=== PATIENT | female | born 1975 | race Two or more races ===

== ENCOUNTER 2024-07-12 09:25 | Emergency (ER) | payer OTHER, MEDICAID ==
[~2024-07-12] VITALS: Ht 152.4 cm; Wt 54.0 kg
[2024-07-12 10:10] VITALS: TEMP 98
--- NOTE | 2024-07-12 10:58 | DVH ---
CLINICAL INDICATION: fall, trauma, pain TECHNIQUE: XY R WRIST 3+ VIEW XRAY Comparison: None FINDINGS/IMPRESSION: : Osteopenia. Comminuted and displaced fracture of the distal radial metaphysis. Diffuse soft-tissue swelling around the wrist joint.
[2024-07-12] MEDS ORDERED: HYDROmorphone HCL 2 MG/ML VL/or syr IM ONE (11:30)
[2024-07-12] MEDS: HYDROcodone-ACET 10/325MG TAB PO ONE (11:58)
[2024-07-12] MEDS: BENZOCAINE (DENTAL) 20 % SPRAY 60ML MT ONE (12:03)
[2024-07-12] MEDS ORDERED: IBUP-1456 PO (12:45)
--- NOTE | 2024-07-12 12:45 | ED.PDOC ---
Musculoskeletal HPI Comments 49-year-old female with a history of CVA, right-sided hemiparesis, brain tumor presents for a fall that occurred yesterday. Pain is located to the right wrist and pain is nonradiating. Onset occurred after she tripped walking into her home. Pain is rated as moderate in his not taking medications for the symptoms listed above Denies hitting head denies LOC Denies persistent nausea Denies vomiting Denies taking any blood thinner medication Denies vision/hearing changes Denies focal loss of strength/sensation or changes in speech Chief Complaint: Upper Extremity Time Seen by MD: 09:37 Reviewed Notes: Nurses Notes, Medications, Allergies Home Meds Active Scripts Hydrocodone-Acetaminophen (Hydrocodone Bitartrate/AC 5-325 mg) 1 Tab Tab, 1 TAB PO Q8HPRN PRN for 5 Days, #15 TAB 0 Refills Prov:CHAZ SHERMAN BALING PRESS OPERATOR 07/12/24 Ibuprofen (Ibuprofen) 800 Mg Tab, 1 TAB PO TID for 30 Days, #90 TAB 0 Refills Prov:CHAZ SHERMAN BALING PRESS OPERATOR 07/12/24 Information Source: Patient Mode of Arrival: Ambulatory Family History Family History: Reviewed,noncontributory to illness Social History Smoker: Non-Smoker Alcohol: Denies ETOH Use Drugs: Denies Drug Use All Other Systems: Reviewed and Negative (Per HPI) Physical Exam General Appearance: No Apparent Distress, Normal HEENT: Normal ENT Inspection, Pharynx Normal, TMs Normal Neck: Full Range of Motion, Non-Tender, Normal, Normal Inspection Respiratory: Chest Non-Tender, Lungs Clear, No Accessory Muscle Use, No Respiratory Distress, Normal Breath Sounds Cardiovascular: No Edema, No JVD, No Murmur, No Gallop, Normal Peripheral Pulses, Regular Rate/Rhythm Breast Exam: Deferred Gastrointestinal: No Organomegaly, Non Tender, No Pulsatile Mass, Normal Bowel Sounds, Soft Genitalia: Deferred Pelvic: Deferred Rectal: Deferred Extremities: No calf tenderness, Normal capillary refill, Normal inspection, Normal range of motion, Non-tender, No pedal edema Musculoskeletal : Apperance: Normal Neurologic: Alert, [employer] II-XII nml as Tested, No Motor Deficits, Normal Affect, Normal Mood, No Sensory Deficits Cerebellar Function: Normal Reflexes: Normal Skin: Dry, Normal Color, Warm Lymphatic: No Adenopathy Was a procedure done? Was a procedure done?: No Differential Diagnosis EXT Differential Diagnosis: Fracture, Sprain, Dislocation X-Ray, Labs, Meds, VS Vital Signs Date Time Temp Pulse Resp B/P (MAP) Pulse Ox O2 Delivery O2 Flow Rate FiO2 07/12/24 13:00 76 20 111/67 (82) 100 07/12/24 10:10 86 18 98 Room Air 07/12/24 10:10 98.0 86 18 117/76 (90) 98 98.0 07/12/24 09:38 98.0 86 18 117/76 (90) 98 Current Medications Medications (Trade) Dose Ordered Sig/Hao Route Start Time Stop Time Status Last Admin Acetaminophen/ Hydrocodone Bitart ([place] 10/325MG Tab) 1 tab ONCE ONCE PO 07/12/24 11:45 07/12/24 11:46 DC 07/12/24 11:58 Benzocaine (Hurricaine [place]) 1 spr ONCE ONCE MT 07/12/24 11:45 07/12/24 11:46 DC 07/12/24 12:03 PATIENT: JANIA CORNELLACCT: [id number]: [id number] : 1975 LOC: ER ROOM / BED: / AGE / SEX: 49 / F ADM STATUS: REG ER SERVICE 1012 ORDERING PHYSICIAN: CHAZ SHERMAN NP PROCEDURE(s): RWRI - R WRIST 3+ VIEW XRAY REASON: fall ORDER NUMBER(s): [id number], ACCESSION NUMBER(s): [id number] CLINICAL INDICATION: fall, trauma, pain TECHNIQUE: XY R WRIST 3+ VIEW XRAY Comparison: None FINDINGS/IMPRESSION: : Osteopenia. Comminuted and displaced fracture of the distal radial metaphysis. Diffuse soft-tissue swelling around the wrist joint. ATED BY: ANUPAM LEWIS MD DICTATED DATE/TIME: 07/12/24 105 SIGNED BY: ANUPAM LEWIS MD SIGNED DATE/TIME: 07/12/24 105 CC: X-Ray, Labs, Meds, VS Comment On reevaluation, patient had symptomatic improvement. Patient is stable for discharge at this time. External notes reviewed. Test results and diagnostic imaging interpreted. All diagnostic findings, discharge care, education and instructions provided Follow-up with PCP in 2 to 3 days Patient verbalized understanding and agreed to treatment plan Vital signs stable, afebrile, no acute distress noted Patient ambulatory with strong steady gait Advised to return precautions for any new or worsening symptoms, return to ER immediately for re-evaluation Patient is aware that the purpose of this visit was for an acute medical emergency requiring emergent stabilization. Chronic conditions, including malig nancies have not been ruled out. Patient is instructed to follow up with PCP as directed and discharge instructions for continued care and workup. If unable to arrange follow-up, patient is to return to the emergency department for reassessment. Patient (parent or legal guardian if applicable) was given verbal and written discharge instructions and acknowledges understanding. Time of 1ST Reevaluation: 11:25 Reevaluation 1ST: Improved Time of 2ND Reevaluation: 12:44 Reevaluation 2ND: Improved Patient Education/Counseling: Diagnosis, Treatment Family Education/Counseling: Diagnosis, Treatment Departure 1 Departure Time of Disposition: 12:45 Impression: Primary Impression: Radial fracture Qualified Codes: S52.501A - Unspecified fracture of the lower end of right radius, initial encounter for closed fracture Disposition: 01 HOME / SELF CARE / HOMELESS Condition: Stable e-Prescriptions Hydrocodone-Acetaminophen (Hydrocodone Bitartrate/AC 5-325 mg) 1 Tab Tab 1 TAB PO Q8HPRN PRN for 5 Days, #15 TAB 0 Refills Prov: CHAZ SHERMAN NP 07/12/24 Ibuprofen (Ibuprofen) 800 Mg Tab 1 TAB PO TID for 30 Days, #90 TAB 0 Refills Prov: CHAZ SHERMAN NP 07/12/24 Discharged With: Self Critical Care Note Critical Care Time?: No Stability Stability form required: No Heart Score Heart Score: Heart Score Response (Comments) Value History N/A 0 EKG N/A 0 Age N/A 0 Risk Factors N/A 0 Troponin N/A 0 Total 0 CHAZ SHERMAN NP Jul 12, 2024 12:45
[2024-07-12 13:00] VITALS: BP 111/67; PULSE 76; RESP 20; O2SAT 100
[2024-07-12] MEDS ORDERED: HYDR-4902 PO (13:06)
== END 2024-07-12 13:07 | disposition home or self-care (01) ==
LOC: ER 09:25
DX: S52.591A Other fractures of lower end of right radius, initial encounter for closed fracture (principal); Z79.1 Long term (current) use of non-steroidal anti-inflammatories (NSAID); Z79.899 Other long term (current) drug therapy; W01.0XXA Fall on same level from slipping, tripping and stumbling without subsequent striking against object, initial encounter; Y93.01 Activity, walking, marching and hiking; Y92.89 Other specified places as the place of occurrence of the external cause; Y99.8 Other external cause status
CPT/HCPCS: 29105; 73110

== ENCOUNTER 2024-11-22 16:42 | Emergency (ER) | payer OTHER, MEDICAID ==
[~2024-11-22] VITALS: Ht 157.5 cm; Wt 50.0 kg
[~2024-11-22 16:42] MED LIST: HYDR-4902 PO; IBUP-1456 PO
--- NOTE | 2024-11-22 17:08 | ED.PDOC ---
Ton[place]. trauma (HPI) HPI Comments 49 y.o female presents to the ED via EMS for a chief complaint of right ankle pain. Patient reports accidently rolling ankle today around 0930 and since has not been able to bear any weight to right leg. Patient presents with positive deformity, describes as sharp and rating a 10/10 on the pain scale. Patient denies any falls, head injuries, dizziness or weakness. EMS placed patient in a box splinter. Chief Complaint: Lower Extremity Time Seen by MD: 16:57 Primary Care Provider: URIEL Zabala notes: Nurses Notes, Musical Engineer Notes, Medications, Allergies Allergies: Coded Allergies: NO KNOWN ALLERGIES (Unverified , 11/22/24) Information Source: Patient, Emergency Med Personnel Mode of Arrival: EMS Severity: Moderate Timing: Hours Duration: Since onset Prehospital treatment: 12 Lead EKG, Carton Maker Location: (R) Ankle Location of laceration: None Mechanism: Blunt trauma Past Medical History PAST MEDICAL HISTORY: Cancer, CVA Surgical History (Other): brain DESIGN DRAFTER CHIEF History: No Pertinent DESIGN DRAFTER CHIEF History Family History Family History: Reviewed,noncontributory to illness Social History Smoker: Non-Smoker Alcohol: Denies ETOH Use Drugs: Denies Drug Use Lives In: Home Constitutional: denies: chills, diaphoresis, fatigue, fever, malaise, sweats, weakness, others EENTM: denies: blurred vision, double vision, ear bleeding, ear discharge, ear drainage, ear pain, ear ringing, eye pain, eye redness, hearing loss, mouth pain, mouth swelling, nasal discharge, nose bleeding, nose congestion, nose pain, photophobia, tearing, throat pain, throat swelling, voice changes, others Respiratory: denies: cough, hemoptysis, orthopnea, SOB at rest, shortness of breath, SOB with excertion, stridor, wheezing, others Cardiovascular: denies: chest pain, dizzy spells, diaphoresis, Dyspnea on exertion, edema, irregular heart beat, left arm pain, lightheadedness, palpitations, PND, syncope, others Gastrointestinal: denies: abdomen distended, abdominal pain, blood streaked bowels, constipated, diarrhea, dysphagia, difficulty swallowing, hematemesis, melena, nausea, poor appetite, poor fluid intake, rectal bleeding, rectal pain, vomiting, others Genitourinary: denies: abnormal vagina bleeding, burning, dyspareunia, dysuria, flank pain, frequency, hematuria, incontinence, pain, , vagina discharge, urgency, others Neurological: denies: dizziness, fainting, headache, left sided numbness, left sided weakness, numbness, paresthesia, pre-existing deficit, right sided numbness, right sided weakness, seizure, speech problems, tingling, tremors, weakness, others Musculoskeletal: reports: others (right ankle pain ); denies: back pain, gout, joint pain, joint swelling, muscle pain, muscle stiffness, neck pain Integumetry: denies: bruises, change in color, change in hair/nails, dryness, laceration, lesions, lumps, rash, wounds, others Allergic/Immunocompromised: denies: Difficulty Healing, Frequent Infections, Hives, Itching, others Hematologic/Lymphatic: denies: anemia, blood clots, easy bleeding, easy bruising, swollen glands, others Endocrine: denies: excessive hunger, excessive sweating, excessive thirst, excessive urination, flushing, intolerance to cold, intolerance to heat, unexplained weight gain, unexplained weight loss, others Psychiatric: denies: anxiety, bipolar disorder, depression, hopeless, panic disorder, schizophrenia, sleepless, suicidal, others All Other Systems: Reviewed and Negative Physical Exam General Appearance: Moderate Distress HEENT: Normal ENT Inspection, Pharynx Normal, TMs Normal Neck: Full Range of Motion, Non-Tender, Normal, Normal Inspection Respiratory: Chest Non-Tender, Lungs Clear, No Accessory Muscle Use, No Respiratory Distress, Normal Breath Sounds Cardiovascular: No Edema, No JVD, No Murmur, No Gallop, Normal Peripheral Pulses, Regular Rate/Rhythm Breast Exam: Deferred Gastrointestinal: No Organomegaly, Non Tender, No Pulsatile Mass, Normal Bowel Sounds, Soft Genitalia: Deferred Pelvic: Deferred Rectal: Deferred Extremities: No calf tenderness, Normal capillary refill, No pedal edema Musculoskeletal : Location: Right Extremity Location: Ankle Apperance: Swelling, Limited ROM, Tenderness: Moderate Neurologic: Alert, leather lacer II-XII nml as Tested, No Motor Deficits, Normal Affect, Normal Mood, No Sensory Deficits Cerebellar Function: Normal Reflexes: Normal Skin: Dry, Normal Color, Warm Lymphatic: No Adenopathy Was a procedure done? Was a procedure done?: No Differential Diagnosis Multiple Trauma: Fractures, Abrasions, Contusion X-Ray, Labs, Meds, VS Vital Signs Date Time Temp Pulse Resp B/P (MAP) Pulse Ox O2 Delivery O2 Flow Rate FiO2 11/22/24 16:53 98.6 75 18 154/80 (104) 99 98.6 X-ray of the right ankle shows: Findings/Impression: 2 views of the right ankle. Nondisplaced fracture of the medial aspect of the talus. Possible nondisplaced fracture of the lateral malleolus. Mild soft tissue edema with a small joint effusion. There is no evidence of dislocation, blastic, or lytic lesions. No radiopaque foreign bodies. The patient was being placed in a posterior splint as well as a sugar-tong splint Crutches were also given to the patient The patient was given [place] for the pain The patient will follow up with the primary care doctor The patient will return to the emergency department's the condition worsens. Images Reviewed?: Images reviewed and evaluated by me Time of 1ST Reevaluation: 17:07 Reevaluation 1ST: Unchanged Patient Education/Counseling: Diagnosis, Treatment, Prognosis, Need For Follow Up Family Education/Counseling: Diagnosis, Treatment, Prognosis, Need For Follow Up Departure 1 Departure Time of Disposition: 18:18 Impression: Primary Impression: Closed right ankle fracture Qualified Codes: S82.891A - Other fracture of right lower leg, initial encounter for closed fracture Disposition: 01 HOME / SELF CARE / HOMELESS Condition: Fair Discharged With: Self Critical Care Note Critical Care Time?: No Stability Stability form required: No I personally scribed for JENAE MOLINA MD ([email or web address]) on 11/22/24 at 17:08. Electronically submitted by Ary Hardin ([facility]). JENAE MOLINA MD Nov 22, 2024 17:08
--- NOTE | 2024-11-22 18:05 | DVH ---
EXAM: XY R ANKLE 2 VIEW XRAY CLINICAL HISTORY: trauma COMPARISON: None TECHNIQUE: XY R ANKLE 2 VIEW XRAY Findings/Impression: 2 views of the right ankle. Nondisplaced fracture of the medial aspect of the talus. Possible nondisplaced fracture of the later al malleolus. Mild soft tissue edema with a small joint effusion. There is no evidence of dislocation, blastic, or lytic lesions. No radiopaque foreign bodies.
[2024-11-22] MEDS: HYDROcodone-ACET 5/325MG TAB PO ONE (21:43)
[2024-11-22 22:32] VITALS: BP 131/72; TEMP 99.2
[2024-11-22 22:33] VITALS: PULSE 72; RESP 16; O2SAT 97
== END 2024-11-22 22:38 | disposition home or self-care (01) ==
LOC: ER 16:42 → EEVIPCON 16:42 → MERGE 16:42 → EDBD 16:42 → ER 22:38
DX: S82.891A Other fracture of right lower leg, initial encounter for closed fracture (principal); X58.XXXA Exposure to other specified factors, initial encounter; Y93.89 Activity, other specified; Y92.89 Other specified places as the place of occurrence of the external cause; Y99.8 Other external cause status
CPT/HCPCS: 29515; 73600